=== PATIENT | male | born 1945 | race Caucasian/White ===

== ENCOUNTER 2017-08-07 11:21 | Day surgery (SDC) | payer OTHER ==
[~2017-08-07] VITALS: Ht 167.6 cm; Wt 98.4 kg
[2017-08-07] VITALS (7 sets, daily range): BP systolic 100–131; BP diastolic 50–65
== END 2017-08-07 17:15 | disposition home or self-care (01) ==
LOC: DS 11:21 → OR 13:30 → DS 13:30
PROVIDERS: Family Medicine
PROC: B2111ZZ Fluoroscopy of Multiple Coronary Arteries using Low Osmolar Contrast (ICD-10-PCS; 2017-08-07)
PROC: 4A023N8 Measurement of Cardiac Sampling and Pressure, Bilateral, Percutaneous Approach (ICD-10-PCS; principal; 2017-08-07 13:30)
DX: I35.0 Nonrheumatic aortic (valve) stenosis (principal); I25.10 Atherosclerotic heart disease of native coronary artery without angina pectoris; I10 Essential (primary) hypertension
CPT/HCPCS: CLHCL; 36600; 76937; C1769; C1887; C1894; J1644; J2001; J2250; J3010; J3490; Q9967